=== PATIENT | female | born 1940 | race Caucasian/White ===

== ENCOUNTER 2021-10-27 09:05 | Observation (INO) ==
--- NOTE | 2021-09-25 09:13 | PAT Medication Instructions ---
Medication Instructions Date of Service September 25, 2021 Home Medications ascorbic acid (vitamin C) 1,000 mg tablet (Vitamin C With Jeannette Hips) 1 g PO QAM aspirin 81 mg tablet,delayed release 81 mg PO QAM biotin 5 mg capsule 5 mg PO QAM cholecalciferol (vitamin D3) 125 mcg (5,000 unit) tablet (Vitamin D3) 125 mcg PO QAM escitalopram oxalate 20 mg tablet (Lexapro) 20 mg PO QAM ibuprofen 200 mg tablet (Advil) 200 - 400 mg PO Q6H PRN multivitamin 1 tab PO QAM naproxen sodium 220 mg capsule (Aleve) 220 - 440 mg PO BID PRN rosuvastatin 10 mg tablet 10 mg PO QAM wheat dextrin 1 gram tablet 1 g PO QAM ASK your surgeon for instructions ibuprofen 200 mg tablet (Advil) 200 - 400 mg PO Q6H PRN naproxen sodium 220 mg capsule (Aleve) 220 - 440 mg PO BID PRN STOP taking 2 weeks before surgery biotin 5 mg capsule 5 mg PO QAM DO NOT take the morning of surgery ascorbic acid (vitamin C) 1,000 mg tablet (Vitamin C With Jeannette Hips) 1 g PO QAM cholecalciferol (vitamin D3) 125 mcg (5,000 unit) tablet (Vitamin D3) 125 mcg PO QAM multivitamin 1 tab PO QAM wheat dextrin 1 gram tablet 1 g PO QAM Take morning of surgery With a small sip of water, OTHERWISE NOTHING TO EAT OR DRINK AFTER MIDNIGHT: aspirin 81 mg tablet,delayed release 81 mg PO QAM (unless surgeon directs otherwise) escitalopram oxalate 20 mg tablet (Lexapro) 20 mg PO QAM rosuvastatin 10 mg tablet 10 mg PO QAM Other Notes If you have any questions please call us at [phone] or [phone] or [phone] or [phone]
--- NOTE | 2021-10-08 13:16 | Anesthesiology Consultation ---
Date of Service October 08, 2021 Assessment & Plan (1) Encounter for pre-operative examination: Chart Review Chart Review: Acceptable Risk for Surgery (pending preop Covid testing results ) and Patient seen in Pre Admission Testing -Due to age- patient is NOT acceptable Same Day Joint candidate. Surgeon's office informed- pt booked now as 23 hour observation Right UE restriction Per PAT appt on 10/08/21, patient denies any recent travel or large group activities. No known Covid positive exposures or Covid related symptoms. No known Covid infection in the past 90 days. Pt is vaccinated for Covid. Preop Covid testing scheduled 10/23/21= will await results. Educated on importance of self quarantining, social distancing and wearing mask in public for the patient one week prior to surgery and after Covid testing done Teaching & Discussion Pre-Anesthesia Teaching/Discussion Notes: Instructed NPO after midnight before surgery,except medications with 15 cc of water. Medication instructions provided according to the PAT guidelines. History Surgery Operation Date: 09/29/21 07:00 Proposed Procedures p Right Reverse Total Shoulder Arthroplasty - Alphonse Baker DO Operation Date: 10/27/21 07:00 Proposed Procedures p Right Reverse Total Shoulder Arthroplasty - Alphonse Baker DO Height/Weight Height: 5 ft 7 in Weight: 53.6 kg Allergies Allergy/AdvReac Type Severity Reaction Status Date / Time nitrofurantoin Allergy Unknown Neck Verified 10/08/21 13:07 [From Macrobid] soreness pseudoephedrine AdvReac Unknown Insomnia Verified 10/08/21 13:07 [From Sudafed] iron AdvReac Palpitation Verified 10/08/21 13:07 s Medications Home Medications Medication Instructions Recorded Confirmed Last Taken ascorbic acid (vitamin C) 1,000 mg 1 g PO QAM 09/23/21 09/23/21 Unknown tablet (Vitamin C With Jeannette Hips) aspirin 81 mg tablet,delayed 81 mg PO QAM 09/23/21 09/23/21 Unknown release biotin 5 mg capsule 5 mg PO QAM 09/23/21 09/23/21 Unknown cholecalciferol (vitamin D3) 125 125 mcg PO QAM 09/23/21 09/23/21 Unknown mcg (5,000 unit) tablet (Vitamin D3) escitalopram oxalate 20 mg tablet 20 mg PO QAM 09/23/21 09/23/21 Unknown (Lexapro) ibuprofen 200 mg tablet (Advil) 200 - 400 mg PO Q6H PRN 09/23/21 09/23/21 Unknown multivitamin 1 tab PO QAM 09/23/21 09/23/21 Unknown naproxen sodium 220 mg capsule 220 - 440 mg PO BID PRN 09/23/21 09/23/21 Unknown (Aleve) rosuvastatin 10 mg tablet 10 mg PO QAM 09/23/21 09/23/21 Unknown wheat dextrin 1 gram tablet 1 g PO QAM 09/23/21 09/23/21 Unknown Past Medical History Medical History Anxiety Cancer RIGHT BREAST- Dx'ed 1990s S/p lumpectomy and XR. No chemo Right UE restriction Hyperlipidemia Exercise / Class Metabolic Activity II 4-5 Yardwork/Stairs/Walk up hill (one flight of stairs - no chest pain or SOB ) Past Family History Family History Sister Family history of reaction to anesthesia PONV Other No known health problems Past Surgical History Surgical History History of colonoscopy 2021 History of lumpectomy of right breast RIGHT ARM RESTRICTION-YRS AGO History of repair of rotator cuff R/L History of total knee replacement R/L Past Anesthesia History No Hx of Anesthesia Complications and No Family Hx of Anesthesia Complications History of PONV No Hx of PONV and Hx of Motion Sickness (with flying on airplanes ) Social History Smoking Status: Former smoker Do You Dip or Chew Tobacco: No Smoking End Date: QUIT IN HER 30'S Hx Alcohol Use: Yes Alcohol type: wine alcohol intake frequency: 0-2 drinks per day (2 glasses wine/day) Hx Substance Use: No Review of Systems Hx of snoring - no hx of sleep study Patient denies chest pain, shortness of breath, dyspnea on exertion, reflux, cough, wheezing, palpitations. No hx of seizures, stroke, ME. No hx of blood clots or blood transfusions Physical Exam Vital Signs VITALS BP 113/67 P 80 TEMP 97.7 SP02 98% RESP 16 Constitutional no acute distress ENMT Mouth: no TMJ clicking Thyromental Distance: > or= 3.5 Finger Breadths (3.5) Mallampati Class: I Neck + limited neck extension Respiratory normal respiratory effort; no respiratory distress Auscultation: lungs clear to auscultation bilaterally; no wheezes Cardiovascular Rate/Rhythm: regular rate and regular rhythm Heart Sounds: no murmur Vessels: no carotid bruit Musculoskeletal Spine: no pain with cervical ROM Extremities: extremities normal to inspection Psychiatric Orientation: alert Lab Results Anesthesia Preop Results Results Anesthesia Widget: WBC 6.06 K/uL (4.8-10.8) 10/08/21 Hgb 12.5 g/dL (12.0-16.0) 10/08/21 Hct 38.3 % (37-47) 10/08/21 Plt 243 K/uL (130-400) 10/08/21 Na 138 mmol/L (136-145) 10/08/21 K 4.3 mmol/L (3.5-5.1) 10/08/21 Cl 103 mmol/L (98-107) 10/08/21 CO2 33 mmol/L (21-32) H 10/08/21 BUN 24 mg/dl (6-23) H 10/08/21 Creat 0.73 mg/dl (0.6-1.2) 10/08/21 Glucose Level 134 mg/dl (70-99(Fasting)) H 10/08/21 PT 10.2 Seconds (9.0-12.0) 10/08/21 PTT 33.3 Seconds (21.0-31.0) H 10/08/21 INR 1.0 (0.9-1.1) 10/08/21 Blood Type O Negative 10/08/21 Antibody Screen NEGATIVE 10/08/21 Testing Electrocardiogram Date: 10/08/21 Findings: + NSR @ (74bpm) Voltage criteria for LVH. Chest X-Ray Date: 10/08/21 Findings: + NAD
--- NOTE | 2021-10-27 06:24 | History & Physical Report ---
Date of Service October 27, 2021 Assessment & Plan (1) Rotator cuff arthropathy of right shoulder: We will proceed with a right reverse shoulder arthroplasty. Postoperatively she will be placed in a sling and kept overnight in the hospital for postoperative medical management. She plans to go to outpatient physical therapy in [place] upon discharge. History of Present Illness Chief Complaint: Rotator cuff arthropathy of the right shoulder. Primary Care Provider: NO PCP Fanny is a pleasant 80-year-old female who has a history of a right rotator cuff repair done several years ago in [place]. Unfortunately she has had pain and weakness in her shoulder since. She has difficult time doing anything away from her body or up overhead. She has had multiple injections in her shoulder. X-rays and clinical examination have been diagnostic for cuff arthropathy of the right shoulder. After failing conservative treatment, she has elected to proceed with a right reverse shoulder arthroplasty. Allergies Allergy/AdvReac Type Severity Reaction Status Date / Time nitrofurantoin Allergy Unknown Neck Verified 10/08/21 13:07 [From Macrobid] soreness pseudoephedrine AdvReac Unknown Insomnia Verified 10/08/21 13:07 [From Sudafed] iron AdvReac Palpitation Verified 10/08/21 13:07 s Home Medications Medication Instructions Recorded Confirmed Type ascorbic acid (vitamin C) 1,000 mg 1 g PO QAM 09/23/21 09/23/21 History tablet (Vitamin C With Jeannette Hips) aspirin 81 mg tablet,delayed 81 mg PO QAM 09/23/21 09/23/21 History release biotin 5 mg capsule 5 mg PO QAM 09/23/21 09/23/21 History cholecalciferol (vitamin D3) 125 125 mcg PO QAM 09/23/21 09/23/21 History mcg (5,000 unit) tablet (Vitamin D3) escitalopram oxalate 20 mg tablet 20 mg PO QAM 09/23/21 09/23/21 History (Lexapro) ibuprofen 200 mg tablet (Advil) 200 - 400 mg PO Q6H PRN 09/23/21 09/23/21 History multivitamin 1 tab PO QAM 09/23/21 09/23/21 History naproxen sodium 220 mg capsule 220 - 440 mg PO BID PRN 09/23/21 09/23/21 History (Aleve) rosuvastatin 10 mg tablet 10 mg PO QAM 09/23/21 09/23/21 History wheat dextrin 1 gram tablet 1 g PO QAM 09/23/21 09/23/21 History Past Med/Surg History Medical History Anxiety Cancer RIGHT BREAST- Dx'ed 1990s S/p lumpectomy and XR. No chemo Right UE restriction Hyperlipidemia Surgical History History of colonoscopy 2021 History of lumpectomy of right breast RIGHT ARM RESTRICTION-YRS AGO History of repair of rotator cuff R/L History of total knee replacement R/L Family History Sister Family history of reaction to anesthesia PONV Other No known health problems Social History Smoking Status: Former smoker Second Hand Exposure: No; Hx Alcohol Use: Yes Alcohol type: wine Hx Substance Use: No Preferred Language: Haitian Communication Ability: Effective Barrel Roller Operator Required: No Beliefs That Will Affect Care: Pentecostalism Pentecostalism Beliefs: MANDAEISM Current Living Situation: Family Current Living Situation Comment: LIVES WITH SISTER REMA current occupational status: retired Feels Safe at Home: Yes Assistive Devices: Denture - Upper Review of Systems All systems reviewed & are unremarkable except as noted in HPI & below. Physical Exam On physical examination of the right shoulder, she has about 60 degrees of forward elevation 60 degrees of abduction. Passively I can get her further but she has a lot of pain. She has 3 out of 5 muscle strength throughout. Constitutional WD/WN, vitals as above Eyes PERRL, conjunctivae normal, anicteric sclerae ENMT external ear and nose normal, oropharynx normal Neck trachea midline, no thyromegaly Respiratory normal respiratory effort Cardiovascular RRR, no murmur, no edema Gastrointestinal (Abdomen) normal bowel sounds, soft, nontender, no hepatosplenomegaly Psychiatric A+Ox3, euthymic affect Results & Data Results & Data Laboratory Results . Diagnostic Findings X-rays of the right shoulder do show signs of cuff arthropathy. There is superior migration of the humeral head on the glenoid. There is moderate osteoa rthritis. PG Care Time/CCT Total # of Minutes Spent Total Time Spent with Patient: Total time spent is greater than 50% in coordination of care (as documented) at patient's floor/unit and/or counseling patient: Coding Level of Care Code None Diagnoses Rotator cuff arthropathy of right shoulder M12.811
[~2021-10-27 09:05] MED LIST: ACETAMINOPHEN 500 MG TAB PO SCH; BUPIVACAINE 0.5 % 5 MG/1 ML PF 10ML VIAL ONE; FAMOTIDINE 20 MG TAB PO SCH; GABAPENTIN 300 MG CAP PO SCH; Ketorolac (*for OR use only*) 30 MG, dexAMETHasone 4 MG, KETAMINE HCL (**OR use only) 1... INFIL SCH; LR 15ML/HR IV SCH; LR 60ML/HR IV SCH; TRANEXAMIC ACID 1,000 MG **IV Intra-op IV SCH; TRANEXAMIC ACID 1,000 MG **IV Pre-op IV SCH; dexAMETHasone 4 MG TAB PO SCH
[2021-10-27] MEDS ORDERED: LIDOCAINE 2% 2 ML VIAL/AMP(20MG/ML) INFIL ONE (09:29)
[2021-10-27] MEDS ORDERED: DEXAMETHASONE SOD INJ 4 MG/ML VIAL ONE (09:29)
[2021-10-27] MEDS ORDERED: MIDAZOLAM HCL 1 MG/ML 2ML VIAL ONE (09:29)
[2021-10-27] MEDS ORDERED: GLYCOPYRROLATE 0.2 MG/ML VIAL ONE (09:29)
[2021-10-27] MEDS ORDERED: PROPOFOL IV EMULSION 10 MG/ML 20 ML VIAL IV ONE (09:29)
[2021-10-27] MEDS ORDERED: fentaNYL citrate 100 MCG/2 ML VIAL ONE (09:29)
[2021-10-27] MEDS ORDERED: NEOSTIGMINE METHYLSULFATE 1 MG/ML 10ML VIAL ONE (09:29)
[2021-10-27] MEDS ORDERED: ONDANSETRON INJ 2 MG/ML 2 ML VIAL ONE (09:29)
[2021-10-27] MEDS ORDERED: PROMETHAZINE HCL 12.5 MG in SODIUM CHLORIDE 0.9% 50 ML IV PRN (10:20)
[2021-10-27] MEDS ORDERED: ePHEDrine sulfate 50 MG/ML AMP IV PRN (10:20)
[2021-10-27] MEDS ORDERED: fentaNYL citrate 100 MCG/2 ML VIAL IV PRN (10:20)
[2021-10-27] MEDS ORDERED: HYDROmorphone INJ 2 MG/ML SYR/VIAL IV PRN (10:20)
[2021-10-27] MEDS ORDERED: ONDANSETRON INJ 2 MG/ML 2 ML VIAL IV PRN ×2 (10:20→14:30)
[2021-10-27] MEDS ORDERED: ATROPINE SULFATE 0.1 MG/ML 10ML SYR IV PRN (10:20)
[2021-10-27] MEDS ORDERED: ORTHO JOINT ANESTHETIC ONE (10:28)
[2021-10-27] MEDS: ceFAZolin 1000MG 1,000 MG/7.5 ML SYR IV SCH ×2 (11:00→14:43)
[2021-10-27] MEDS ORDERED: ePHEDrine sulfate 50 MG/ML SYR ONE (11:23)
--- NOTE | 2021-10-27 13:06 | XRay Report ---
XR shoulder RT min 2V routine CLINICAL HISTORY: Post shoulder surgery COMPARISON STUDY: None. FINDINGS: Status post reverse right total shoulder arthroplasty. The hardware is intact. Skin gabriel are in place. No acute fracture or dislocation. There are old, healed right rib fractures. IMPRESSION: Status post reverse right total shoulder arthroplasty. No evidence for hardware complica tion. ACT 112: Negative or not required by law. Electronically signed by: Rogelio Martinez M.D. 10/27/2021 1:05 PM
--- NOTE | 2021-10-27 13:35 | Operative Report ---
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 Post-Op Diagnosis: Degenerative Joint Disease Right Shoulder with tendinopathy of the long head of the biceps tendon I identified the patient and participated in the time-out.: Yes Procedure Operation Date: 09/29/21 07:00 <No data on this case meets the specified criteria> Operation Date: 10/27/21 12:30 Actual Procedures p Right Reverse Total Shoulder Arthroplasty(Right) with open biceps tenodesis as a distinct and separate procedure (modifier 59)- Alphonse Baker, Surgeon Alphonse Baker, Campus Receptionist Alphonse Huerta PAC Estimated Blood Loss 100 Findings Consistent with Post-Op Diagnosis Specimens Right humeral head Complications none Disposition Disposition: Recovery Room Indications Fanny is a pleasant 80-year-old female who is been dealing with chronic worsening right shoulder pain. She had a right rotator cuff repair in [place] years ago. Unfortunately she went on to develop cuff arthropathy of the right shoulder. After failing years of conservative treatment, she elected proceed with a right reverse shoulder arthroplasty. Description of Procedure A CPT code modifier 59: The long head of the biceps tendon was enlarged and inflamed consistent with tendinopathy. A tenodesis was opted. This was a separate and distinct portion of the procedure. For these reasons, a CPT code modifier 59 will be added to this case. Implants used: I used a [employer]omet Comprehensive reverse total shoulder arthroplasty system with a size 12 press fit micro humeral stem, a +6 offset humeral tray and a standard humeral bearing, a 25 mm small augment baseplate with a 6.5 mm central screw and superior and inferior locking screws, and a size 36 mm eccentric glenosphere. Fanny arrived at [facility] for the above procedure. She was seen in the preoperative holding area and the operative extremity was identified and signed. She was given a preoperative antibiotic, TXA, and an interscalene nerve block. She was taken back to the operating room, laid on table in supine position, and put under general anesthesia. She was then put into the beachchair position. The shoulder was then prepped and draped in sterile fashion. A timeout was done and the patient and the operative extremity was properly identified. A deltopectoral approach was used. Dissection was taken down through the fascia and the deltoid was retracted laterally and the conjoined tendon was retracted medially. The anterior shoulder was exposed. The biceps groove was opened up and the biceps tendon was examined extensively. The biceps tendon demonstrated enlargement and inflammatory changes consistent with longstanding inflammation in the context of osteoarthritis and cuff arthropathy. The long head of the biceps tendon was then tenodesed to the upper border of the pectoralis major. This was a separate and distinct portion of the procedure. The subscapularis was then directly released off the lesser tuberosity with a peel technique. The inferior capsule was released and the humeral head was dislocated. A canal finding reamer was sent down the center of the humeral canal. Sequential reaming up to a size 12 reamer was done. Off that reamer, a proximal humeral resection guide was placed. The proximal humerus was resected at 135 of inclination and 25 of retroversion. Osteophytes were then removed and the glenoid was exposed. Time was spent doing a complete capsular and labral release. The glenoid guide was then placed in the inferior aspect of the glenoid. A 3.2 mm Steinmann pin was then placed into the glenoid vault at 10 of inclination. The glenoid baseplate was then reamed. The final size 25 mm small augment baseplate was then impacted in the place. A 6.5 mm central screw was then placed followed by superior and inferior locking screws. A 36 mm eccentric glenosphere was then impacted into place. Surrounding soft tissues were then injected with 100 cc an orthopedic pain control cocktail. The proximal humerus was then exposed. Sequential broaching of the humerus up to a size 12 broach was done. Off that broach a +6 offset humeral tray was trialed. The shoulder was then reduced, brought through a full range of motion, and felt to be stable. The shoulder was then dislocated and the broach was removed. The final size 12 micro press-fit humeral stem was then impacted into place. A standard humeral bearing was then snapped onto a +6 offset humeral tray. The humeral tray was then impacted onto the humeral stem. The shoulder was once again reduced, brought through a full range of motion, and felt to be stable. The subscapularis was then tenodesed back to the lesser tuberosity with transosseous FiberWire sutures and side to side sutures with the arm in 45 of external rotation. A dilute betadyne lavage was then done for 3 minutes. The joint was then irrigated with normal saline solution. Hemostasis was obtained. The interval was closed with 2-0 Vicryl suture. The skin was then closed with 2-0 Vicryl and gabriel. A Silverlon dressing was placed and the arm was rested in a regular arm sling. She was then extubated and transferred to a hospital bed. She taken to the postanesthesia care unit in stable condition. She tolerated the procedure well. Alphonse Huerta PA-C, was present for the entire procedure. He was critical for patient positioning, prepping, draping, retraction exposure, wound closure and application of sterile dressing. I attest to the content of the Intraoperative Record and any orders documented therein. Any exceptions are noted below.
[2021-10-27] MEDS ORDERED: oxyCODONE HCL IR 5 MG TAB (IMMEDIATE RELEASE) PO PRN (14:30)
[2021-10-27] MEDS ORDERED: bisacodyL 10 MG SUPP PR PRN (14:30)
[2021-10-27] MEDS ORDERED: METOCLOPRAMIDE HCL INJ 5 MG/ML 2 ML VIAL IV PRN (14:30)
[2021-10-27] MEDS ORDERED: MAGNESIUM HYDROXIDE SUSP 30 ML UDC PO PRN (14:30)
[2021-10-27] MEDS ORDERED: HYDROmorphone INJ 0.5 MG/0.5 ML SYR IV PRN (14:30)
[2021-10-27] MEDS ORDERED: NALOXONE HCL 0.4 MG/1 ML VIAL/CARP IV PRN (14:30)
--- NOTE | 2021-10-27 16:09 | Anesthesiology Progress Note ---
Date of Service October 27, 2021 Anesthesia Post Procedure Vital Signs Vital Signs: Temp Pulse Pulse Resp BP Pulse Ox 10/27/21 15:00 36.3 C L 75 16 117/62 94 10/27/21 14:32 35.8 C L 74 16 112/66 96 10/27/21 13:55 36.3 C L 71 16 119/68 95 10/27/21 13:40 71 14 125/63 92 10/27/21 13:25 36.7 C 75 19 127/68 94 10/27/21 13:15 72 17 132/69 96 10/27/21 13:05 72 25 H 130/71 97 10/27/21 12:55 75 19 138/72 96 10/27/21 12:45 77 18 131/63 100 10/27/21 12:35 77 15 138/69 100 10/27/21 12:29 36.2 C L 83 14 154/67 H 100 10/27/21 09:30 37.1 C 84 20 144/49 H 97 Transfer of Care Handoff Completed per policy Notes Mental Status: alert / awake / arousable and participated in evaluation Patient Amnestic to Procedure: Yes Nausea / Vomiting: adequately controlled Pain: adequately controlled Airway Patency, RR, SpO2: stable & adequate BP & HR: stable & adequate Hydration State: stable & adequate Anesthetic Complications: no major complications apparent
[2021-10-27] MEDS: KETOROLAC TROMETHAMINE 15 MG/ML VIAL IV SCH ×2 (16:19→20:30)
[2021-10-27] MEDS: ACETAMINOPHEN 500 MG TAB PO SCH ×2 (16:19→22:16)
[2021-10-27] MEDS: SODIUM CHLORIDE 0.9% 1000ML 1,000 ML IV SCH ×2 (18:05→22:18)
[2021-10-27] MEDS: ceFAZolin 2000MG 2,000 MG/15 ML SYR IV SCH (18:25)
[2021-10-27] MEDS: DOCUSATE SODIUM 100 MG CAP PO SCH (20:30)
[2021-10-27] MEDS ORDERED: SENNA 8.6 MG TAB PO SCH (21:00)
[2021-10-28] MEDS: KETOROLAC TROMETHAMINE 15 MG/ML VIAL IV SCH ×2 (03:14→08:30)
[2021-10-28] MEDS: ceFAZolin 2000MG 2,000 MG/15 ML SYR IV SCH (03:14)
[2021-10-28] MEDS: ACETAMINOPHEN 500 MG TAB PO SCH (06:06)
--- NOTE | 2021-10-28 06:51 | Orthopedic Progress Note ---
Date of Service October 28, 2021 Assessment & Plan (1) Status post reverse total replacement of right shoulder: Overall she is doing very well. She denies any pain in the right shoulder. She will be seen by physical therapy today for ambulation and range of motion exercises. She can be discharged home later today. She will follow- up with orthopedics in 2 weeks. Katt Escobedo was seen and examined at bedside this morning. Overall she is doing very well. She denies any pain in the right shoulder. She is happy with her progress at this point. She has no complaints. Review of Systems All systems reviewed & are unremarkable except as noted in HPI & below. Physical Exam On physical examination of the right shoulder, the dressing is clean and dry. She is wearing a sling as instructed. Her radial, median, and ulnar nerves are checked intact at her wrist. Her axillary nerve was not checked yet. Results & Data Results & Data Laboratory Results . Diagnostic Findings Postoperative x-rays of the right shoulder show the prosthesis to be in anatomic alignment without any evidence of fracture, dislocation, or loosening. PG Care Time/CCT Total # of Minutes Spent Total Time Spent with Patient: Total time spent is greater than 50% in coordination of care (as documented) at patient's floor/unit and/or counseling patient: Coding Level of Care Code 91377 Post Operative Follow-Up Diagnoses Status post reverse total replacement of right shoulder Z96.611
[2021-10-28] MEDS ORDERED: dexAMETHasone 4 MG TAB PO SCH (08:00)
[2021-10-28] MEDS: DOCUSATE SODIUM 100 MG CAP PO SCH (08:27)
[2021-10-28] MEDS ORDERED: MULTIVITAMIN TAB PO SCH (09:00)
[2021-10-28] MEDS ORDERED: ASPIRIN 81 MG ECTAB PO SCH (09:00)
[2021-10-28] MEDS ORDERED: ESCITALOPRAM OXALATE 20 MG TAB PO SCH (09:00)
[2021-10-28] MEDS ORDERED: ROSUVASTATIN CALCIUM 10 MG TAB PO SCH (09:00)
== END 2021-10-28 11:24 | disposition home health service (06) ==
LOC: ASU 09:05 → 3N 09:05